=== PATIENT | male | born 1990 | race Caucasian/White ===

== ENCOUNTER 2019-01-11 17:48 | Observation (INO) | payer SELFPAY ==
[~2019-01-11] VITALS: Ht 177.8 cm; Wt 90.0 kg
[2019-01-11 18:13] LABS: BASO % 0.4 % (0.0-2.0); EOS # 0.5 (0.0-0.7); EOS % 5.4 % (0-4.0); GRAN # 4.4 (1.4-6.5); GRAN % 49.1 % (42.2-75.2); HEMATOCRIT 44.3 % (42.0-52.0); HEMOGLOBIN 15.4 g/dl (13.5-18.0); LYMPH # 3.2 (1.2-3.4); LYMPH % 35.4 % (20.0-51.0); MEAN CELL VOLUME 89 fl (80.0-100.0); MEAN CORPUSCULAR HEMOGLOBIN 31 pg (27.0-31.0); MEAN CORPUSCULAR HGB CONC 35 g/dl (33.0-37.0); MEAN PLATELET VOLUME 10.2 fl (7.4-10.4); MONO # 0.9 (0.1-0.6); MONO % 9.5 % (1.7-9.3); PLATELET COUNT 235 K/mm3 (130-400); RED BLOOD COUNT 4.96 M/mm3 (4.20-5.60); REDCELL DISTRIBUTION WIDTH-CV 12.4 % (11.5-14.5)
[2019-01-11 18:14] LABS: ALBUMIN 4.5 gm/dL (3.5-5.0); BILIRUBIN,TOTAL 0.6 mg/dL (0.0-1.0); CALCIUM 9.1 mg/dL (8.4-10.2); CREATININE, serum 0.92 (0.66-1.25); POTASSIUM 3.6 mmol/L (3.4-5.0); TOTAL PROTEIN 7.8 gm/dL (6.4-8.2)
[2019-01-11 18:23] LABS: PROTHROMBIN TIME 11.9 SECONDS (9.7-12.8)
[2019-01-11 20:56] VITALS: BP 127/64; PULSE 87; TEMP 97.7
--- NOTE | 2019-01-11 21:00 | NUR ---
Brought to floor via cart by ER staff. Patient having pain in left hip. Scratches on left arm and hand. Bruising noted to small area right below left hip in thigh area. Soreness to left rib area. Alert and oriented. Fmaily in room. Tolerting PO water without difficulty.
[2019-01-11 22:44] VITALS: BP 111/65; PULSE 81; TEMP 97.8
--- NOTE | 2019-01-11 23:06 | NUR ---
Lying in bed with eyes open looking at his phone. Rates pain 2/10. Denies any further needs at this time. Father in room with the patient.
--- NOTE | 2019-01-12 01:57 | NUR ---
Complains of increasing pain in left hip. Administered Morphine as prescribed. Patient says that he has been sleeping most of the time. Would like to go back to sleep at this time. Denies further needs.
[2019-01-12 03:17] VITALS: BP 109/67; PULSE 70; TEMP 97.5
--- NOTE | 2019-01-12 03:35 | NUR ---
Patient calls and requests warm blanket. Warm blanket provided. Patient explains that the morphine helped to decrease his pain and he feels better at this time. Patient says that he as been up to the bathroom a couple times to urinate. Feels okay ambulating in room. Patient would like to go back to sleep at this time. Denies further needs.
--- NOTE | 2019-01-12 05:26 | NUR ---
Lying in bed with eyes closed. Opens eyes when name called out. Alert and oriented. PERRLA. Denies pain but explains that his body feels stiff. Patient denies further needs at this time.
--- NOTE | 2019-01-12 06:26 | NUR ---
Lying in bed on right side with eyes closed. Respirations even and unlabored. No signs or symptoms of discomfort. IV continues to infuse without difficulty.
[2019-01-12 07:11] LABS: HEMOGLOBIN 14.3 g/dl (13.5-18.0)
[2019-01-12 08:07] VITALS: BP 101/55; PULSE 72; TEMP 97.8
--- NOTE | 2019-01-12 10:00 | NUR ---
Per suicide risk assessment, inquired to Dr Alonso for social work to visit with patient regarding suicide risk. Patient states he has been to psychologist in the past and was on medications, however, he recently lost insurance coverage r/t divorce and is no longer going to appointments or taking medication. Patient states he would like to resume both but cannot afford. States he does not have a specific suicide plan but "thinks about things often". Mother is at bedside and is very supportive. Rhonda with social work notified and will see patient.
--- NOTE | 2019-01-12 10:19 | NUR ---
Patient alert and oriented, answers questions appropriately. See assessment. Small several abrasions noted to right side of body. C/o right hip pain 5/10 with movement. Gait steady. No other c/o at this time.
--- NOTE | 2019-01-12 10:22 | NUR ---
First visit from the silver service waiter. No needs right now.
[2019-01-12] MEDS ORDERED: NORCO 325 MG-51 TAB PO (10:35)
--- NOTE | 2019-01-12 10:51 | NUR ---
CINDA met with the patient and the patient's mother, Elissa (ph#[phone]), to discuss discharge plan. The patient lives in [place] with his mother. He recently went through a divorce. He reports independence with ADLs and does not have any DME. The patient does not have a primary care provider, but him and his mother were interested in income based clinics in [place]. The patient receives his medications at [facility], when in [place]. He states that he does have difficulties affording his meds. CINDA provided the patient with [facility]'s (income based clinic in [place]) New Patient Information and their registration packet. The patient reports that he would like to make an appointment himself. CINDA educated the patient on how [facility] can assist with prescription assistance, the [employer] cayla, and also provided him with a GoodRx card. The patient reports that he no longer has insurance, after getting the divorce. CINDA notified Financial Counselor Dimas. Dimas met with the patient. The patient plans to return home with his mother upon discharge. The patient answered yes on number 6 of the Suicide Risk Assessment. CINDA collaborated with the patient's RN and attending. CINDA consulted [facility] for a screen. A screener from [facility] is to meet with the patient today. CINDA to continue to follow.
[2019-01-12 12:05] VITALS: BP 108/61; PULSE 77; TEMP 97.6
--- NOTE | 2019-01-12 13:00 | NUR ---
Michelet rander here to see patient. [facility] patient needs to be seen in clinic and has set this up with patient. [facility] patient has a very good support system and is safe to discharge with family. Patient given information for psychiatry in [facility]. Michelet rander states patient is safe to discharge to home with family.
--- NOTE | 2019-01-12 13:33 | NUR ---
Discharge instructions reviewed with patient and family, verbalized understanding. Discharged ambulatory to auto/home with family at 1330.
--- NOTE | 2019-01-12 13:51 | NUR ---
Jose, Crisis Stabilization Bar Welder with [facility], met and screened the patient. A safety plan was made. The patient is to discharge home with his mother today, 01/12. No additional needs at this time.
== END 2019-01-12 13:30 | disposition home or self-care (01) ==
LOC: COL.ER 17:48 → SURG 19:29
PROVIDERS: Emergency Medicine; ADMIT Surgery
DX: M25.552 Pain in left hip (principal); F32.9 Major depressive disorder, single episode, unspecified; F41.9 Anxiety disorder, unspecified; Z91.011 Allergy to milk products; V43.52XA Car driver injured in collision with other type car in traffic accident, initial encounter; Y92.410 Unspecified street and highway as the place of occurrence of the external cause
CPT/HCPCS: G0378; J1885; J2270; J2405; J3010; J3360; J7030; Q9967